=== PATIENT | female | born 1985 | race Caucasian/White ===

== ENCOUNTER 2017-03-11 16:01 | Emergency (ER) | payer SELFPAY ==
[~2017-03-11] VITALS: Ht 177.8 cm; Wt 116.0 kg
[~2017-03-11 16:01] MED LIST: AMOXICILLIN500 MG PO; FLEXERIL PO; MOTRIN800 MG PO; NAPROSYN375 MG PO; NAPROSYN500 MG PO; NO HOME MEDS; PENICILLN VK250 MG OR; SILVADENE1 % EX; ULTRAM50 M1 PO; ZANTAC 150 MAX150 MG PO
[2017-03-11] MEDS ORDERED: PENICILLN VK500 MG PO (16:14)
[2017-03-11] MEDS ORDERED: LORTAB 5-325 MG1 TAB PO (16:14)
[2017-03-11 16:20] VITALS: BP 155/89
== END 2017-03-11 16:20 | disposition home or self-care (01) | DRG 159 ==
LOC: ED 16:01
DX: K08.89 Other specified disorders of teeth and supporting structures (principal); K04.7 Periapical abscess without sinus; R50.9 Fever, unspecified; S02.5XXA Fracture of tooth (traumatic), initial encounter for closed fracture

== ENCOUNTER 2020-12-25 13:03 | Emergency (ER) | payer SELFPAY ==
[~2020-12-25] VITALS: Ht 177.8 cm; Wt 122.7 kg
[~2020-12-25 13:03] MED LIST changes: +LORTAB 5-325 MG1 TAB PO; +PENICILLN VK500 MG PO
[2020-12-25 15:08] VITALS: BP 154/82
== END 2020-12-25 15:17 | disposition home or self-care (01) | DRG 563 ==
LOC: ED 13:03
DX: S63.501A Unspecified sprain of right wrist, initial encounter (principal); F17.200 Nicotine dependence, unspecified, uncomplicated; W01.0XXA Fall on same level from slipping, tripping and stumbling without subsequent striking against object, initial encounter; Y92.009 Unspecified place in unspecified non-institutional (private) residence as the place of occurrence of the external cause

== ENCOUNTER 2021-01-22 07:20 | Emergency (ER) | payer SELFPAY ==
[~2021-01-22] VITALS: Ht 177.8 cm; Wt 128.8 kg
[2021-01-22 08:12] LABS: URINE BILIRUBIN - DIPSTICK NEGATIVE (NEGATIVE); URINE BLOOD DIPSTICK NEGATIVE (NEGATIVE); URINE COLOR YELLOW; URINE GLUCOSE - DIPSTICK NEGATIVE (NEGATIVE); URINE KETONE NEGATIVE (NEGATIVE); URINE LEUK ESTERASE NEGATIVE (NEGATIVE); URINE PROTEIN - DIPSTICK NEGATIVE (NEG-TRACE); URINE UROBILINOGEN - DIPSTICK 0.2 E.U./dL (0.2)
[2021-01-22 08:17] LABS: URINE NITRITE - DIPSTICK NEGATIVE (Negative)
[2021-01-22] MEDS ORDERED: KEFLEX500 MG PO (08:47)
[2021-01-22] MEDS ORDERED: ROBITUSSIN AC10 ML PO (08:47)
[2021-01-22 09:32] VITALS: BP 136/58
== END 2021-01-22 09:32 | disposition home or self-care (01) | DRG 203 ==
LOC: ED 07:20
PROVIDERS: Emergency Medicine
DX: J40 Bronchitis, not specified as acute or chronic (principal); Z20.822 Contact with and (suspected) exposure to COVID-19

== ENCOUNTER 2021-02-24 08:37 | Emergency (ER) | payer SELFPAY ==
[~2021-02-24] VITALS: Ht 177.8 cm; Wt 126.4 kg
[~2021-02-24 08:37] MED LIST changes: +KEFLEX500 MG PO; +ROBITUSSIN AC10 ML PO
[2021-02-24] MEDS ORDERED: ULTRAM50 MG PO (11:00)
[2021-02-24 11:10] VITALS: BP 121/74
== END 2021-02-24 11:10 | disposition home or self-care (01) | DRG 563 ==
LOC: ED 08:37
DX: S83.92XA Sprain of unspecified site of left knee, initial encounter (principal); X50.0XXA Overexertion from strenuous movement or load, initial encounter; Y93.19 Activity, other involving water and watercraft; Y92.007 Garden or yard of unspecified non-institutional (private) residence as the place of occurrence of the external cause
CPT/HCPCS: L1830

== ENCOUNTER 2022-02-06 11:47 | Emergency (ER) | payer SELFPAY ==
[2022-02-06] VITALS (8 sets, daily range): BP systolic 117–163; BP diastolic 67–103
[~2022-02-06] VITALS: Ht 177.8 cm; Wt 122.0 kg
[~2022-02-06 11:47] MED LIST changes: +ULTRAM50 MG PO
[2022-02-06 12:24] LABS: HEMATOCRIT 42.6 % (37.0-47.0); HEMOGLOBIN 13.8 g/dl (12.0-16.0); IMMATURE GRANULOCYTES 0.1 % (0.0-5.0); MEAN CELL VOLUME 82.7 fL CALC (80.0-100.0); MEAN CORPUSCULAR HGB 26.8 pG CALC (26.0-32.0); MEAN CORPUSCULAR HGB CONC 32.4 g/dL CAL (32.0-36.0); NEUT# 5.21 thou/uL (2.00-7.15); RED BLOOD COUNT 5.15 mill/uL (4.20-5.60); RED CELL DISTRI WIDTH 13.6 % (11.5-15.5)
[2022-02-06 12:57] LABS: LIPASE 46 u/l (23-300)
[2022-02-06 13:01] LABS: ALBUMIN 4.3 g/dL (3.2-5.0); ALKALINE PHOSPHATASE 89 u/l (38-126); BILIRUBIN, TOTAL 0.4 mg/dL (0.0-1.4); BUN 12 mg/dL (7-17); BUN/CREATININE RATIO 14 (12-20 (CALC)); CHLORIDE 107 mmol/l (95-108); CREATININE 0.8 mg/dL (0.5-1.0); GFR FOR AFR.AMER. > 60 ML/MIN (>=60 (CALC)); GFR OTHER RACES > 60 ML/MIN (>=60 (CALC)); SGOT/AST 33 u/l (14-36); TOTAL PROTEIN 7.7 g/dL (6.3-8.2)
[2022-02-06 13:04] LABS: ANION GAP 12 (6-22 (CALC)); CARBON DIOXIDE 23 mmol/l (22-30); SODIUM 138 mmol/l (137-146)
[2022-02-06 13:06] LABS: MYOGLOBIN 21 ng/mL (0 - 62)
[2022-02-06] MEDS ORDERED: PROTONIX40 M2 PO (14:15)
== END 2022-02-06 14:10 | disposition home or self-care (01) | DRG 179 ==
LOC: ED 11:47
PROVIDERS: Family Medicine; Nurse Practitioner
DX: U07.1 COVID-19 (principal); J10.1 Influenza due to other identified influenza virus with other respiratory manifestations; K21.9 Gastro-esophageal reflux disease without esophagitis
CPT/HCPCS: S0164

== ENCOUNTER 2022-05-05 18:30 | Emergency (ER) | payer SELFPAY ==
[~2022-05-05] VITALS: Ht 177.8 cm; Wt 125.0 kg
[~2022-05-05 18:30] MED LIST changes: +PROTONIX40 M2 PO
[2022-05-05] MEDS ORDERED: PEPCID20 MG PO (18:45)
[2022-05-05] MEDS ORDERED: NAPROXEN500 MG PO (20:21)
[2022-05-05] MEDS ORDERED: METHOCARBAMOL500 MG PO (20:21)
[2022-05-05 21:17] VITALS: BP 142/87
== END 2022-05-05 21:18 | disposition home or self-care (01) | DRG 552 ==
LOC: ED 18:30
DX: S16.1XXA Strain of muscle, fascia and tendon at neck level, initial encounter (principal); X50.0XXA Overexertion from strenuous movement or load, initial encounter

== ENCOUNTER 2022-10-09 07:55 | Emergency (ER) | payer SELFPAY ==
[~2022-10-09] VITALS: Ht 177.8 cm; Wt 122.5 kg
[~2022-10-09 07:55] MED LIST changes: +METHOCARBAMOL500 MG PO; +NAPROXEN500 MG PO; +PEPCID20 MG PO
[2022-10-09 08:25] VITALS: BP 135/81
[2022-10-09 09:01] VITALS: BP 115/65
[2022-10-09] MEDS ORDERED: ZPAK PO (10:24)
[2022-10-09 11:18] VITALS: BP 115/65
== END 2022-10-09 11:25 | disposition home or self-care (01) | DRG 153 ==
LOC: ED 07:55
DX: J06.9 Acute upper respiratory infection, unspecified (principal); Z20.822 Contact with and (suspected) exposure to COVID-19

== ENCOUNTER 2022-11-06 19:22 | Emergency (ER) | payer OTHER ==
[~2022-11-06] VITALS: Ht 177.8 cm; Wt 112.0 kg
[~2022-11-06 19:22] MED LIST changes: +ZPAK PO
[2022-11-06 19:54] VITALS: BP 124/102
[2022-11-06 20:01] VITALS: BP 145/74
[2022-11-06 20:28] VITALS: BP 134/88
[2022-11-06 20:31] VITALS: BP 129/80
[2022-11-06] MEDS ORDERED: NAPROXEN500 MG PO (20:38)
== END 2022-11-06 20:57 | disposition home or self-care (01) | DRG 566 ==
LOC: ED 19:22
DX: M20.092 Other deformity of left finger(s) (principal); W23.0XXA Caught, crushed, jammed, or pinched between moving objects, initial encounter; Y93.G1 Activity, food preparation and clean up; Y92.89 Other specified places as the place of occurrence of the external cause; Y99.0 Civilian activity done for income or pay

== ENCOUNTER 2023-08-12 11:10 | Emergency (ER) | payer SELFPAY ==
[~2023-08-12] VITALS: Ht 177.8 cm; Wt 120.0 kg
[~2023-08-12 11:10] MED LIST changes: +LORTAB 5/3255 MG PO
[2023-08-12 11:32] VITALS: BP 118/74
[2023-08-12] MEDS ORDERED: NAPROXEN500 MG PO (12:44)
[2023-08-12] MEDS ORDERED: TRAMADOL HYDROC50 M1 PO (12:44)
[2023-08-12 13:00] VITALS: BP 158/99
[2023-08-12 13:06] VITALS: BP 158/99
== END 2023-08-12 13:06 | disposition home or self-care (01) | DRG 605 ==
LOC: ED 11:10
DX: S90.31XA Contusion of right foot, initial encounter (principal); W20.8XXA Other cause of strike by thrown, projected or falling object, initial encounter

== ENCOUNTER 2024-04-29 19:35 | Emergency (ER) | payer OTHER ==
[~2024-04-29] VITALS: Ht 177.8 cm; Wt 123.0 kg
[~2024-04-29 19:35] MED LIST changes: +TRAMADOL HYDROC50 M1 PO
[2024-04-29 19:41] VITALS: BP 150/104
[2024-04-29 19:47] VITALS: BP 179/137
[2024-04-29] MEDS ORDERED: MED MARIJUANA (19:53)
[2024-04-29 20:01] VITALS: BP 139/79
[2024-04-29] MEDS ORDERED: DEXAMETHASONE SOD. PHOSPHATE 10 MG/ML VIAL IM ONE (20:05)
[2024-04-29] MEDS ORDERED: diazePAM 10 MG/2 ML VIAL IM ONE (20:05)
[2024-04-29] MEDS ORDERED: traMADol HCL 50 MG/TAB PO ONE (20:05)
[2024-04-29 20:31] VITALS: BP 151/83
[2024-04-29] MEDS ORDERED: NABUMETONE750 MG PO (21:31)
[2024-04-29] MEDS ORDERED: MEDDOSEPAK PO (21:31)
[2024-04-29] MEDS ORDERED: CYCLOBENZAPRINE10 MG PO (21:31)
[2024-04-29 21:49] VITALS: BP 151/83
== END 2024-04-29 21:49 | disposition home or self-care (01) | DRG 563 ==
LOC: ED 19:35
DX: S43.402A Unspecified sprain of left shoulder joint, initial encounter (principal); X50.0XXA Overexertion from strenuous movement or load, initial encounter; Y93.89 Activity, other specified; Y92.89 Other specified places as the place of occurrence of the external cause; Y99.0 Civilian activity done for income or pay; Z72.0 Tobacco use

== ENCOUNTER 2024-07-29 10:49 | Emergency (ER) | payer SELFPAY ==
[~2024-07-29] VITALS: Ht 177.8 cm; Wt 126.8 kg
[~2024-07-29 10:49] MED LIST changes: +CYCLOBENZAPRINE10 MG PO; +LORTAB 1010 MG PO; +MED MARIJUANA; +MEDDOSEPAK PO; +NABUMETONE750 MG PO; +PREDNISONE10 MG PO
[2024-07-29 11:02] VITALS: BP 144/102
[2024-07-29 11:04] VITALS: BP 135/52
[2024-07-29 11:32] VITALS: BP 162/116
[2024-07-29 11:35] VITALS: BP 136/61
[2024-07-29 12:53] VITALS: BP 136/61
== END 2024-07-29 13:00 | disposition home or self-care (01) | DRG 556 ==
LOC: ED 10:49
DX: M25.572 Pain in left ankle and joints of left foot (principal)